=== PATIENT | male | born 2000 | race Caucasian/White ===

== ENCOUNTER 2023-02-20 15:33 | Emergency (ER) | payer OTHER ==
[2023-02-20] MEDS ORDERED: Morphine 4 MG/ML Syringe IM ONE (16:15)
[2023-02-20] MEDS ORDERED: Ondansetron 4 MG/2 ML SDV IVPUSH ONE (16:15)
[2023-02-20] MEDS ORDERED: Ketorolac 60 MG/2 ML SDV IM ONE (16:24)
[2023-02-20] MEDS ORDERED: Lidocaine 1% 10 ML MDV INJECT ONE (16:25)
[2023-02-20] MEDS ORDERED: Diphtheria/Tetanus Toxoids,Adult (Td) 0.5 ML SDV IM ONE (17:01)
[2023-02-20] MEDS ORDERED: Cephalexin 500 MG Cap PO ONE (17:02)
[2023-02-20] MEDS ORDERED: Diphtheria,Pertussis(Acell),Tetanus Vaccine 0.5 ML Syringe IM ONE (17:12)
== END 2023-02-20 17:20 | disposition home or self-care (01) ==
LOC: JD.ED 15:33
DX: S61.412A Laceration without foreign body of left hand, initial encounter (principal); Z23 Encounter for immunization; W26.8XXA Contact with other sharp object(s), not elsewhere classified, initial encounter
CPT/HCPCS: 12002; 73130; 90471; 90715; 96372; 99283; A9270; J1885; J3490